=== PATIENT | female | born 1945 | race Caucasian/White ===

== ENCOUNTER 2018-04-01 12:53 | Outpatient (REF) | payer MEDICARE, BC, SELFPAY ==
[2018-04-01 19:39] LABS: Anion Gap 8.1 mmol/L (3-11); BUN 14 mg/dL (7-18); CO2 24.9 mmol/L (21.0-32.0); CREATININE 0.84 mg/dL (0.55-1.02); Calcium 8.6 mg/dL (8.5-10.1); Chloride 106 mmol/L (98-107); Cholesterol 193 mg/dL (50-200); Glucose 108 mg/dL (70-100); HDL Cholesterol 42 mg/dL (40-60); LDL CHOLESTEROL 131 mg/dL (<100); Potassium 4.3 mmol/L (3.5-5.1); Sodium 139 mmol/L (136-145); Triglyceride 103 mg/dL (30-150)
== END 2018-04-01 13:13 ==
LOC: NCHCN 12:53
PROVIDERS: Visit Provider Nurse Practitioner Family
DX: I10 Essential (primary) hypertension (principal)
CPT/HCPCS: 80048; 80061; 83721

== ENCOUNTER 2018-10-06 13:36 | Outpatient (REF) | payer MEDICARE, BC, SELFPAY ==
[2018-10-06 20:26] LABS: Anion Gap 11.1 mmol/L (3-11); BUN 25 mg/dL (7-18); CO2 24.9 mmol/L (21.0-32.0); CREATININE 1.09 mg/dL (0.55-1.02); Calcium 9.2 mg/dL (8.5-10.1); Chloride 105 mmol/L (98-107); Cholesterol 159 mg/dL (50-200); Estimated GFR 49.34 (mL/min/1.73m2); Glucose 96 mg/dL (70-100); HDL Cholesterol 37 mg/dL (40-60); LDL CHOLESTEROL 99 mg/dL (<100); Sodium 141 mmol/L (136-145); Triglyceride 103 mg/dL (30-150)
== END 2018-10-06 13:56 ==
LOC: LBN 13:36
PROVIDERS: PCP Nurse Practitioner Family; Visit Provider Nurse Practitioner Family
DX: E78.5 Hyperlipidemia, unspecified (principal); I10 Essential (primary) hypertension
CPT/HCPCS: 80048; 80061; 83721

== ENCOUNTER 2019-04-14 14:48 | Outpatient (REF) | payer MEDICARE, BC, SELFPAY ==
[2019-04-14 19:45] LABS: ALT 17 U/L (14-59); AST 14 U/L (15-37); Albumin 3.8 g/dL (3.4-5.0); Alkaline Phosphatase 97 U/L (46-116); Amylase 58 U/L (25-115); Anion Gap 13.1 mmol/L (3-11); BUN 23 mg/dL (7-18); Bilirubin, Total 0.4 mg/dL (0.2-1.0); CO2 22.9 mmol/L (21.0-32.0); CREATININE 1.08 mg/dL (0.55-1.02); Calcium 8.7 mg/dL (8.5-10.1); Chloride 105 mmol/L (98-107); Estimated GFR 49.73 (mL/min/1.73m2); Glucose 100 mg/dL (70-100); Lipase 148 U/L (73-393); Potassium 4.1 mmol/L (3.5-5.1); Sodium 141 mmol/L (136-145); Total Protein 6.7 g/dL (6.4-8.2)
== END 2019-04-14 15:08 ==
LOC: NCHCN 14:48
PROVIDERS: PCP Nurse Practitioner Family; Visit Provider Nurse Practitioner Family
DX: R10.13 Epigastric pain (principal)
CPT/HCPCS: 80053; 83690; 82150

== ENCOUNTER 2019-06-22 12:05 | Outpatient (REF) | payer MEDICARE, BC, SELFPAY ==
[2019-06-22 20:15] LABS: Calculated LDL 119 mg/dL; Cholesterol 183 mg/dL (<200); HDL Cholesterol 35 mg/dL (40-60); Triglyceride 146 mg/dL (<150)
== END 2019-06-22 12:25 ==
LOC: NCHCN 12:05
PROVIDERS: PCP Nurse Practitioner Family; Visit Provider Nurse Practitioner Family
DX: E78.5 Hyperlipidemia, unspecified (principal)
CPT/HCPCS: 80061

== ENCOUNTER 2021-10-19 10:57 | Outpatient (REF) | payer MEDICARE, BC, SELFPAY ==
[2021-10-19 19:02] LABS: ALT 13 U/L (14-59); AST 9 U/L (15-37); Albumin 3.5 g/dL (3.4-5.0); Alkaline Phosphatase 97 U/L (46-116); Anion Gap 10.3 mmol/L (3-11); BUN 21 mg/dL (7-18); Bilirubin, Total 0.3 mg/dL (0.2-1.0); CO2 23.7 mmol/L (21.0-32.0); CREATININE 1.2 mg/dL (0.55-1.02); Calcium 8.7 mg/dL (8.5-10.1); Chloride 107 mmol/L (98-107); Glucose 99 mg/dL (74-106); Potassium 4.1 mmol/L (3.5-5.1); Sodium 141 mmol/L (136-145); Total Protein 6.5 g/dL (6.4-8.2)
== END 2021-10-19 10:58 | disposition home or self-care (01) ==
LOC: NCHCN 10:57
PROVIDERS: PCP Nurse Practitioner Family; Visit Provider Nurse Practitioner Family
DX: I10 Essential (primary) hypertension (principal)
CPT/HCPCS: 80053

== ENCOUNTER 2022-05-10 16:07 | Outpatient (REF) | payer MEDICARE, BC, SELFPAY ==
[2022-05-10 19:13] LABS: ESR 46 mm/hr (0-30)
[2022-05-10 19:25] LABS: ALT 12 U/L (14-59); AST 17 U/L (15-37); Albumin 3.9 g/dL (3.4-5.0); Alkaline Phosphatase 104 U/L (46-116); Anion Gap 10.9 mmol/L (3-11); BUN 32 mg/dL (7-18); Bilirubin, Total 0.4 mg/dL (0.2-1.0); CO2 25.1 mmol/L (21.0-32.0); CREATININE 1.4 mg/dL (0.55-1.02); Calcium 9.3 mg/dL (8.5-10.1); Chloride 101 mmol/L (98-107); Estimated GFR 38.99 (mL/min/1.73m2); Glucose 108 mg/dL (74-106); Potassium 3.7 mmol/L (3.5-5.1); Sodium 137 mmol/L (136-145); Total Protein 7.5 g/dL (6.4-8.2)
== END 2022-05-10 16:08 | disposition home or self-care (01) ==
LOC: NCHCN 16:07
PROVIDERS: PCP Nurse Practitioner Family; Visit Provider Physician Assistant
DX: I10 Essential (primary) hypertension (principal); M79.10 Myalgia, unspecified site
CPT/HCPCS: 80053; 85652; 86140

== ENCOUNTER 2022-07-20 15:38 | Outpatient (REF) | payer MEDICARE, BC, SELFPAY ==
[2022-07-20 18:48] LABS: HCT 26.7 % (36.0-46.0); HGB 7.6 g/dL (11.2-15.7); MCH 19.6 pg (27.0-33.0); MCHC 28.5 % (32.0-36.0); MPV 9.8 fL (8.0-11.0); Platelet Count 518 10^3/uL (130-400); RBC 3.87 10^6/uL (3.93-5.22); RDW 19.2 % (11.7-14.6); RDW-SD 46.6 fL; WBC 13.55 10^3/uL (4.4-10.8)
[2022-07-20 18:54] LABS: ESR 10 mm/hr (0-30)
[2022-07-20 19:17] LABS: MCV 69 fL (80-95)
[2022-07-20 19:20] LABS: Vitamin D 25 Total 17.9 ng/mL (30-100)
== END 2022-07-20 15:39 | disposition home or self-care (01) ==
LOC: NCHCN 15:38
PROVIDERS: PCP Nurse Practitioner Family; Visit Provider Internal Medicine
DX: M85.88 Other specified disorders of bone density and structure, other site (principal); M35.3 Polymyalgia rheumatica
CPT/HCPCS: 82306; 85027; 85652

== ENCOUNTER 2022-09-20 16:16 | Outpatient (REF) | payer MEDICARE, BC, SELFPAY ==
[2022-09-20 19:23] LABS: HCT 32.3 % (36.0-46.0); HGB 9.9 g/dL (11.2-15.7); MCH 23.6 pg (27.0-33.0); MCHC 30.7 % (32.0-36.0); MCV 77 fL (80-95); Platelet Count 477 10^3/uL (130-400); RDW-SD 60.5 fL; WBC 13.39 10^3/uL (4.4-10.8)
[2022-09-20 19:36] LABS: C-Reactive Protein 0.15 mg/dL (0.0-0.3)
[2022-09-20 19:38] LABS: Iron 15 ug/dL (50-170); Total Iron Binding Capacity 377 ug/dL (250-450); Transferrin Sat 4 % (15-50)
[2022-09-20 19:39] LABS: RBC 4.19 10^6/uL (3.93-5.22)
== END 2022-09-20 16:17 | disposition home or self-care (01) ==
LOC: NCHCN 16:16
PROVIDERS: PCP Nurse Practitioner Family; Visit Provider Internal Medicine
DX: D50.9 Iron deficiency anemia, unspecified (principal); R00.2 Palpitations; N18.31 Chronic kidney disease, stage 3a; M79.18 Myalgia, other site
CPT/HCPCS: 85027; 83540; 83550; 86140

== ENCOUNTER 2023-03-21 16:51 | Outpatient (REF) | payer MEDICARE, BC, SELFPAY ==
[2023-03-21 19:22] LABS: Anion Gap 11.1 mmol/L (3-11); BUN 28 mg/dL (7-18); C-Reactive Protein 0.34 mg/dL (0.0-0.3); CO2 23.9 mmol/L (21.0-32.0); CREATININE 1.5 mg/dL (0.55-1.02); Chloride 103 mmol/L (98-107); Estimated GFR 35.67 (mL/min/1.73m2); Glucose 127 mg/dL (74-106); Potassium 4.4 mmol/L (3.5-5.1); Sodium 138 mmol/L (136-145)
[2023-03-21 20:48] LABS: HCT 37.7 % (36.0-46.0); MCH 27.7 pg (27.0-33.0); MCHC 31.8 % (32.0-36.0); MCV 87 fL (80-95); MPV 10.3 fL (8.0-11.0); Platelet Count 384 10^3/uL (130-400); RBC 4.33 10^6/uL (3.93-5.22); RDW 14.6 % (11.7-14.6); RDW-SD 46.8 fL; WBC 11.25 10^3/uL (4.4-10.8)
== END 2023-03-21 16:52 | disposition home or self-care (01) ==
LOC: NCHCN 16:51
PROVIDERS: PCP Nurse Practitioner Family; Visit Provider Internal Medicine
DX: D50.9 Iron deficiency anemia, unspecified (principal); M35.3 Polymyalgia rheumatica; I10 Essential (primary) hypertension; F41.8 Other specified anxiety disorders; R00.2 Palpitations
CPT/HCPCS: 80048; 85027; 86140

== ENCOUNTER 2023-07-22 15:02 | Outpatient (REF) | payer MEDICARE, BC, SELFPAY ==
[2023-07-22 20:11] LABS: ESR 27 mm/hr (0-30); HCT 36.9 % (36.0-46.0); HGB 11.7 g/dL (11.2-15.7); MCH 26.8 pg (27.0-33.0); MCHC 31.7 % (32.0-36.0); MCV 85 fL (80-95); MPV 10.4 fL (8.0-11.0); Platelet Count 392 10^3/uL (130-400); RBC 4.36 10^6/uL (3.93-5.22); RDW 14.9 % (11.7-14.6); RDW-SD 46.1 fL; WBC 8.87 10^3/uL (4.4-10.8)
[2023-07-22 20:25] LABS: Iron 37 ug/dL (50-170); Total Iron Binding Capacity 359 ug/dL (250-450); Transferrin Sat 10 % (15-50)
[2023-07-22 20:31] LABS: BUN 22 mg/dL (7-18); CREATININE 1.4 mg/dL (0.55-1.02); Calcium 8.7 mg/dL (8.5-10.1); Chloride 106 mmol/L (98-107); Estimated GFR 38.75 (mL/min/1.73m2); Glucose 110 mg/dL (74-106); Potassium 3.8 mmol/L (3.5-5.1); Sodium 143 mmol/L (136-145)
== END 2023-07-22 15:03 | disposition home or self-care (01) ==
LOC: NCHCN 15:02
PROVIDERS: PCP Nurse Practitioner Family; Visit Provider Internal Medicine
DX: D64.9 Anemia, unspecified (principal); M35.3 Polymyalgia rheumatica; N18.31 Chronic kidney disease, stage 3a
CPT/HCPCS: 80048; 85027; 85652; 86141; 83540; 83550

== ENCOUNTER 2024-02-13 20:49 | Outpatient (REF) | payer MEDICARE, BC, SELFPAY ==
[2024-02-13 19:50] LABS: ESR 16 mm/hr (0-30); HGB 13.3 g/dL (11.2-15.7); MCH 29.6 pg (27.0-33.0); MCHC 32.4 % (32.0-36.0); MCV 91 fL (80-95); MPV 10.7 fL (8.0-11.0); Platelet Count 313 10^3/uL (130-400); RBC 4.49 10^6/uL (3.93-5.22); RDW 13.8 % (11.7-14.6); RDW-SD 46.5 fL; WBC 10.97 10^3/uL (4.4-10.8)
[2024-02-13 20:12] LABS: Anion Gap 8.6 mmol/L (3-11); BUN 23 mg/dL (7-18); CO2 23.4 mmol/L (21.0-32.0); CREATININE 1.3 mg/dL (0.55-1.02); Calcium 8.8 mg/dL (8.5-10.1); Chloride 106 mmol/L (98-107); Estimated GFR 42.09 (mL/min/1.73m2); Glucose 109 mg/dL (74-106); Potassium 4.3 mmol/L (3.5-5.1); Sodium 138 mmol/L (136-145)
[2024-02-13 20:13] LABS: C-Reactive Protein < 0.50 mg/dL (<or=0.5)
[2024-02-13 20:18] LABS: Total Iron Binding Capacity 267 ug/dL (250-450)
== END 2024-02-13 20:50 | disposition home or self-care (01) ==
LOC: NCHCN 20:49
PROVIDERS: PCP Nurse Practitioner Family; Visit Provider Internal Medicine
DX: D50.9 Iron deficiency anemia, unspecified (principal); I10 Essential (primary) hypertension; M35.3 Polymyalgia rheumatica
CPT/HCPCS: 80048; 85027; 85652; 83550; 86140

== ENCOUNTER 2024-10-01 17:17 | Outpatient (REF) | payer MEDICARE, BC, SELFPAY ==
[2024-10-01 19:26] LABS: HCT 41.1 % (36.0-46.0); HGB 13.6 g/dL (11.2-15.7); MCH 30.2 pg (27.0-33.0); MCHC 33.1 % (32.0-36.0); MCV 91 fL (80-95); MPV 10.7 fL (8.0-11.0); Platelet Count 312 10^3/uL (130-400); RDW 13.3 % (11.7-14.6); RDW-SD 45.1 fL; WBC 11.32 10^3/uL (4.4-10.8)
[2024-10-01 19:40] LABS: Iron 66 ug/dL (50-170); Total Iron Binding Capacity 280 ug/dL (250-450)
== END 2024-10-01 17:18 | disposition home or self-care (01) ==
LOC: NCHCN 17:17
PROVIDERS: PCP Nurse Practitioner Family; Visit Provider Internal Medicine
DX: D50.9 Iron deficiency anemia, unspecified (principal)
CPT/HCPCS: 85027; 83540; 83550